=== PATIENT | female | born 1980 | race Caucasian/White ===

== ENCOUNTER 2022-12-24 15:07 | Inpatient (IN) | payer BC ==
--- OUTSIDE RECORDS SUMMARY | 2022-12-24 15:24 | XMS REPORT | Continuity of Care Document ---
:1980 Author Organization [facility] t Address [address] [place] [address] [place] [id number] Care Team Providers Name Role Phone Pcp, Patient Does Not Have A Primary Care Physician +[id number] BRIELLE HALEY Attending Clinician Unavailable Brielle Haley PA-C Attending Clinician Unknown, Attending Attending Clinician Unavailable Fatemeh Carroll MD Attending Clinician FATEMEH CARROLL Attending Clinician Unavailable Doctor Unassigned, [place] Attending Clinician Unavailable Payers Payer Name Policy Type Policy Number Effective Date Expiration Date S [facility] - [id number] 2022 00:00:00 OUT OF STATE Problems This patient has no known problems. Allergies, Adverse Reactions, Alerts Allergy Allergy Status Severity Reaction(s) Onset Inactive Treating Comm ents Source Name Type Date Date Clinician NO KNOWN Drug Active Univers ALLERGIE Class ity of [facility] Social History Social Habit Start Date Stop Date Quantity Comments Source History of Cigarette Smoker Universi ty of tobacco use [facility] Tobacco use and 2022-12-16 2022-12-16 Smokeless tobacco Un iversity of exposure 00:00:00 00:00:00 non-user [facility] Sex Assigned At [birth year] Universit y of 00:00:00 00:00:00 [facility] Smoking Status Start Date Stop Date Source Smokes tobacco daily 2022-12-16 00:00:00 Univers ity of [facility] Tobacco [facility]ations Ordered Filled Start Stop Current Ordering Indication Dosage Frequency Signature Comments Components Source Medication Medication Date Date Medication? Clinician (SIG) Name Name dexamethaso 2022- No [id number] 10mg Univers ne sod phos 12-17 64782 ity of PF 02:00: 01:07 [place] injection 00 :00 Medical 10 mg Branch dexamethaso 2022- No [id number] 10mg 10 mg, Univers ne sod phos 12-17 [id number] Intramuscu ity of PF 02:00: 01:07 lar, ONCE, [place] injection 00 :00 1 dose, On Medi josie 10 mg 12/16/22 Branch at 2100, 1 mL ciprofloxac Yes [id number] 4[drp] Place 4 Univers in-dexameth 12-16 [id number] Drops in ity of asone 00:00: right ear [place] 0.3-0.1 % 00 in the Medical otic drops morning Branch and 4 Drops in the evening. ciprofloxac 2022- No [id number] 4[drp] Place 4 Univers in-dexameth 12-16 [id number] Drops in it y of asone 00:00: 00:00 right ear [place] 0.3-0.1 % 00 :00 in the Medical otic drops morning Branch and 4 Drops in the evening. predniSONE 2022- No [id number] 40mg Univers (DELTASONE) 12-09 ity of tablet 40 02:45: 01:58 [place] mg 00 :00 Medical Branch predniSONE 2022- No [id number] 40mg 40 mg, Univers (DELTASONE) 12-09 Oral, ity o f tablet 40 02:45: 01:58 ONCE, 1 [place] mg 00 :00 dose, On Medical Tue Branch 12/08/22 at 2145, Routine methylPREDN Yes [id number] Take by [facility] ISolone 12-08 mouth ity of (MEDROL, 00:00: SEE-INSTRU Roberto as GUILHERME,) 4 mg 00 CTIONS. Medica l tablets follow Branch package directions azelastine Yes [id number] 1{spray Use 1 Univers 137 mcg 12-08 } [place] in ity of (0.1 %) 00:00: each [place] nasal spray 00 nostril in Nv dical the Branch morning and 1 [place] in the evening. Use in each nostril as directed fluticasone 2022-0 Yes [id number] 1{spray Use 1 Univers propionate 12-08 } [place] in ity of 50 00:00: each [place] mcg/actuati 00 nostril in Nv dical on nasal the Branch spray morning. cetirizine 2022-0 Yes [id number] 10mg Take 1 Univers (ZYRTEC) 10 12-08 tablet by it y of mg tablet 00:00: mouth [place] the Medical morning. Branch methylPREDN 0 Yes [id number] Take by Univers ISolone 12-08 mouth ity of (MEDROL, 00:00: SEE-INSTRU Roberto as GUILHERME,) 4 mg 00 CTIONS. Medica l tablets follow [place] package directions azelastine 0 Yes [id number] 1{spray Use 1 Univers 137 mcg 12-08 } [place] in ity of (0.1 %) 00:00: each [place] nasal spray 00 nostril in Nv dical the Branch morning and 1 [place] in the evening. Use in each nostril as directed fluticasone 2022-0 Yes [id number] 1{spray Use 1 Univers propionate 12-08 } [place] in ity of 50 00:00: each [place] mcg/actuati 00 nostril in Nv dical on nasal the Branch spray morning. cetirizine 0 Yes [id number] 10mg Take 1 Univers (ZYRTEC) 10 12-08 tablet by it y of mg tablet 00:00: mouth [place] the Medical morning. [place] Vital Signs Vital Name Observation Time Observation Value Comments Source Systolic blood 2022-12-17 00:53:00 128 mm[Hg] [facility] Diastolic blood 2022-12-17 00:53:00 78 mm[Hg] [facility] Heart rate 2022-12-17 00:53:00 89 /min [facility] Body temperature 2022-12-17 00:53:00 36.67 Meka [facility] rate 2022-12-17 00:53:00 16 /min [facility] Body weight 2022-12-17 00:53:00 78.926 kg Universi ty [facility] BMI 2022-12-17 00:53:00 24.97 kg/m2 Universi ty [facility] Oxygen saturation in 2022-12-17 00:53:00 99 /min University of Arterial blood by [facility] Pulse oximetry Branch Systolic blood 2022-12-09 01:46:00 131 mm[Hg] Univer sity of pressure [facility] Diastolic blood 2022-12-09 01:46:00 88 mm[Hg] Unive rsity of pressure [facility] Heart rate 2022-12-09 01:46:00 100 /min Universi [facility] Body temperature 2022-12-09 01:46:00 37.17 Meka [facility] Respiratory rate 2022-12-09 01:46:00 16 /min [facility] Body height 2022-12-09 01:46:00 177.8 cm Universi ty [facility] Body weight 2022-12-09 01:46:00 78.019 kg Universi ty [facility] BMI 2022-12-09 01:46:00 24.68 [facility] in 2022-12-09 01:46:00 99 /min University of Arterial blood by [facility] Pulse oximetry Branch Procedures Procedure Date / Time Performed Performing Clinician [facility] e ASSIGNMENT OF BENEFITS 2022-12-09 01:39:08 Doctor Unassigned, No [facility] Encounters Start End Encounter Admission Attending Care Care Encounter Source Date/Time Date/Time Type Type Clinicians Facility Department ID 2022-12-16 2022-12-16 Outpatient R AMBREEN [facility] [id number] Univers 19:40:00 20:17:55 BRIELLE duarte [facility] 2022-12-16 2022-12-16 Urgent Brielle Haley [facility] [id number] Univers 19:40:00 20:17:55 Care Unknown, Attending HEALTH [id number] itdayan [facility] [id number] Roberto as CHANTELLE?BLEA [phone] [address] MEDICAL OFFICE [facility] 2022-12-08 2022-12-08 Urgent Carly [facility] [id number] Univers 20:40:00 21:00:00 Care [facility] [id number] it y of [place] [id number] Roberto as CHANTELLE?BLEA [id number] [address] OFFICE [facility] 2022-12-08 2022-12-08 Outpatient R CARLY [facility] [id number] Univers 20:40:00 20:40:00 FATEMEH ity [facility] 2022-12-08 2022-12-08 Orders Doctor CYNTHIA [id number] Univers 00:00:00 00:00:00 Only Unassigned, [place] [id number] ity of [place] [facility] [id number] Roberto as [id number] [place] [id number] Branch Results This patient has no known results.
[2022-12-24] MEDS ORDERED: FENTANYL CITR 100 MCG/2 ML ONE (16:24)
[2022-12-24] MEDS ORDERED: NA CHLORIDE 0.9% 1,000 ML ONE ×2 (16:24→19:22)
[2022-12-24 17:01] LABS: Absolute Lymphocytes (CBC) 1.7 K/uL (0.7-4.9); Lymphocytes % 15.6 % (15.3-44.8); MCV 93.2 fL (80-100); MPV 8.3 fL (7.6-11.3); RBC Red Blood Cell Count 4.08 M/uL (3.86-4.86)
[2022-12-24 17:03] LABS: Specific Gravity 1.006 (1.005-1.030); Urine Bilirubin NEGATIVE (Negative); Urine Blood Negative (Negative); Urine Clarity Clear (Clear); Urine Color Colorless (Yellow); Urine Glucose NEGATIVE (Negative); Urine Protein NEGATIVE (Negative); Urine Urobilinogen Normal (Normal); Urine pH 5.5 (5.0-7.0)
[2022-12-24 17:07] LABS: Specific Gravity 1.006 (1.005-1.030)
[2022-12-24 17:15] LABS: Albumin 3.1 g/dL (3.4-5.0); Bilirubin Total 0.2 mg/dL (0.2-1.0); Potassium 3.4 mEq/L (3.5-5.1); Protein, Total 6.8 g/dL (6.4-8.2)
[2022-12-24 17:26] LABS: Protime INR 0.9
[2022-12-24] MEDS ORDERED: KCL 20 MEQ/100 mL IVPB 100 ML IV ONE (17:46)
--- NOTE | 2022-12-24 17:54 | RAD REPORT ---
EXAM DESCRIPTION: CTAbdomen Pelvis W Contrast - 12/24/2022 5:47 pm CLINICAL HISTORY: Abdominal pain. ABD PAIN COMPARISON: No comparisons TECHNIQUE: Biphasic CT imaging of the abdomen and pelvis was performed with 100 ml non-ionic IV cont rast. All CT scans are performed using dose optimization technique as appropriate and may include automated exposure control or mA/KV adjustment according to patient size. FINDINGS: The lung bases are clear. The liver demonstrates diffuse fatty infiltration. Spleen, pancreas, adrenal glands and kidneys are w ithin normal limits. No bowel obstruction, free air, free fluid or abscess. There is vkis-go-euuibzlv inflammation and thi ckening with surrounding lymphadenopathy seen distal small bowel. Right lower quadrant anastomosis is present. Appendix is absent. No evidence of significant lymphadenopathy. No suspicious bony findings. IMPRESSION: Moderately thickened and inflamed distal small bowel loops noted likely indicating infla mmatory bowel disease or infection. No bowel obstruction, free fluid or abscess.
--- NOTE | 2022-12-24 19:10 | EDPHYS ---
Physician Documentation [facility] Name: Pebbles Negrete Age: 42 yrs Sex: Female : 1980 Arrival Date: 12/24/2022 Time: 15:07 Bed 17 Private MD: ED Physician Prince Ramires HPI: 12/24 17:14 This 42 yrs old Female presents to ER via Ambulatory with complaints of Abdominal Pain. snw 17:14 The patient presents with abdominal pain that is diffuse. Onset: The symptoms/episode snw began/occurred acutely. The symptoms radiate to rectum. Associated signs and symptoms: Pertinent positives: anorexia, nausea. The symptoms are described as constant. Severity of pain: At its worst the pain was moderate to perianal area, severe. The patient has experienced a previous episode, approximately 6 years ago, and the symptoms today are exactly the same, in [place] . The patient has not recently seen a physician. 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 ROS: 17:13 Constitutional: Negative for fever, chills, and weight loss, Eyes: Negative for injury, snw pain, redness, and discharge, ENT: Negative for injury, pain, and discharge, Neck: Negative for injury, pain, and swelling, Cardiovascular: Negative for chest pain, palpitations, and edema, Respiratory: Negative for shortness of breath, cough, wheezing, and pleuritic chest pain, Back: Negative for injury and pain, : Negative for injury, bleeding, discharge, and swelling, MS/Extremity: Negative for injury and deformity, Skin: Negative for injury, rash, and discoloration, Neuro: Negative for headache, weakness, numbness, tingling, and seizure, Psych: Negative for depression, anxiety, suicide ideation, homicidal ideation, and hallucinations. 17:13 Abdomen/GI: Positive for abdominal pain, nausea, abdominal cramps, alison rectal pain, mass. Exam: 17:03 Head/Face: Normocephalic, atraumatic. Eyes: Pupils equal round and reactive to light, snw extra-ocular motions intact. Lids and lashes normal. Conjunctiva and sclera are non-icteric and not injected. Cornea within normal limits. Periorbital areas with no swelling, redness, or edema. 17:03 Neck: Trachea midline, no thyromegaly or masses palpated, and no cervical lymphadenopathy. Supple, full range of motion without nuchal rigidity, or vertebral point tenderness. No Meningismus. Chest/axilla: Normal chest wall appearance and motion. Nontender with no deformity. No lesions are appreciated. 17:03 Respiratory: Lungs have equal breath sounds bilaterally, clear to auscultation and percussion. No rales, rhonchi or wheezes noted. No increased work of breathing, no retractions or nasal flaring. Back: No spinal tenderness. No costovertebral tenderness. Full range of motion. Skin: Warm, dry with normal turgor. Normal color with no rashes, no lesions, and no evidence of cellulitis. MS/ Extremity: Pulses equal, no cyanosis. Neurovascular intact. Full, normal range of motion. Neuro: Awake and alert, GCS 15, oriented to person, place, time, and situation. Cranial nerves II-XII grossly intact. Motor strength 5/5 in all extremities. Sensory grossly intact. Cerebellar exam normal. Normal gait. Psych: Awake, alert, with orientation to person, place and time. Behavior, mood, and affect are within normal limits. 17:03 Constitutional: The patient appears alert, awake, uncomfortable. 17:03 ENT: Nose: Nasal mucosa: edematous, Mouth: is normal, Voice: is normal. 17:03 Cardiovascular: Rate: tachycardic, Heart sounds: normal. 17:03 Abdomen/GI: Inspection: abdomen appears normal, Bowel sounds: normal, Palpation: moderate abdominal tenderness, in the right lower quadrant and left lower quadrant, Rectal exam: mass, that is moderate-sized, with tenderness, tender abscess deep to right of anus. Vital Signs: 15:12 BP 147 / 77; Pulse 112; Resp 16; Temp 97.5; Pulse Ox 100% on R/A; Weight 78.02 kg; iw Height 5 ft. 10 in. ; Pain 8/10; 16:45 BP 117 / 80; Pulse 89; Resp 16; Pulse Ox 100% on R/A; db 17:30 BP 112 / 61; Pulse 77; Resp 16; Pulse Ox 98% on R/A; db 18:36 Pulse 74; Resp 17; Pulse Ox 99% on R/A; ap3 19:00 BP 122 / 85; Pulse 81; Resp 16; Pulse Ox 100% on R/A; jb4 20:21 BP 111 / 55; Pulse 81; Resp 16; Pulse Ox 100% on R/A; jb4 15:12 Body Mass Index 24.68 (78.02 kg, 177.8 cm) iw 15:12 Pain Scale: Adult iw MDM: 15:36 Patient medically screened. snw 17:08 Differential diagnosis: bowel obstruction, diverticulitis, perianal abscess. Data snw reviewed: vital signs, nurses notes, lab test result(s), radiologic studies. I considered the following discharge prescriptions or medication management in the emergency department Medications were administered in the Emergency Department. See MAR. 19:07 ED course: reached out for more clarification of pelvis CT result as mass at right of snw anus is tender and pt has a history of a fistula on the left. Discussed admission with Patricia White to admit for further care. 19:11 Management of patient was discussed with the following: Hospitalist: awaiting sn clarification of pelvic CT findings, CT reaching out to Dr. Hall again. Discussed admit with Patricia White for admission. 12/24 15:38 Order name: Blood Culture Adult (2) [facility] 12/24 15:38 Order name: CBC with Diff; Complete Time: 17:11 [facility] 12/24 15:38 Order name: CMP; Complete Time: 17:16 [facility] 12/24 15:38 Order name: Lactate w/ 2H reflex if indic.; Complete Time: 17:17 [facility] 12/24 15:38 Order name: Protime (+inr); Complete Time: 17:27 [facility] 12/24 15:38 Order name: Ptt, Activated; Complete Time: 17:27 [facility] 12/24 15:38 Order name: Urinalysis w/ reflexes; Complete Time: 17:09 [facility] 12/24 15:38 Order name: PREGU; Complete Time: 17:09 [facility] 12/24 15:38 Order name: CT Abd/Pelvis - IV Contrast Only; Complete Time: 19:17 [facility] 12/24 15:38 Order name: EKG; Complete Time: 15:39 [facility] 12/24 15:38 Order name: Cardiac monitoring; Complete Time: 16:46 snw 12/24 15:38 Order name: EKG - Nurse/Tech; Complete Time: 16:46 w 12/24 15:38 Order name: IV Saline Lock - Large Bore; Complete Time: 16:46 snw 12/24 15:38 Order name: Labs collected and sent; Complete Time: 16:46 snw 12/24 15:38 Order name: O2 Per Protocol; Complete Time: 16:46 12/24 15:38 Order name: O2 Sat Monitoring; Complete Time: 16:46 w 12/24 15:38 Order name: Vital Signs; Complete Time: 16:46 snw Administered Medications: 20:21 Discontinued: Ciprofloxacin IVPB 400 mg 200 ml IVPB once over 60 mins jb4 16:35 Drug: NS 0.9% IV 1000 ml Route: IV; Rate: 1 bolus; Site: right antecubital; db 16:35 Drug: fentaNYL (PF) IVP 25 mcg Route: IVP; Site: right antecubital; db 17:40 Drug: Potassium Chloride IV 20 mEq Route: IV; Rate: calculated rate; Site: right ap3 antecubital; 19:18 Drug: NS 0.9% IV 1000 ml Route: IV; Rate: 125 ml/hr; Site: right antecubital; jb4 19:30 Drug: metroNIDAZOLE IVPB 250 mg Volume: 50 ml; Route: IVPB; Rate: 100 ml/hr; Infused jb4 Over: 30 mins; Site: left antecubital; 20:00 Follow up: Response: No adverse reaction; IV Status: Completed infusion; IV Intake: [id number] 20:03 Drug: Ciprofloxacin IVPB 400 mg Volume: 200 ml; Route: IVPB; Infused Over: 60 mins; jb4 Site: left antecubital; 20:21 Follow up: Response: Adverse reaction, Physician notified; IV Status: Order to jb4 discontinue infusion 20:27 Drug: MethylPrednisoLONE IVP 125 mg Route: IVP; Site: left antecubital; jb4 20:27 Drug: diphenhydrAMINE IVP 50 mg Route: IVP; Site: left antecubital; jb4 20:27 Drug: Famotidine IVP 20 mg Route: IVP; Site: left antecubital; jb4 Disposition: 07/14 10:01 Co-signature as Attending Physician, Prince Ramires MD I reviewed the patient's care rt provided by the Advanced Practice Provider and agree with the diagnosis and treatment plan. Disposition Summary: 12/24/22 19:09 Hospitalization Ordered Hospitalization Status: Inpatient Admission snw Provider: Hillary Tapia Location: Telemetry/MedSurg (Inpatient) snw Condition: Stable snw Problem: new snw Symptoms: are unchanged snw Bed/Room Type: Standard snw Room Assignment: 406(12/24/22 19:35) mw Diagnosis - Crohn's disease of both small and large intestine - alison anal abscess (right) snw - Alison rectal abscess snw Forms: - Medication Reconciliation Form snw - SBAR form snw Signatures: Dispatcher [employer] EDMS Lulu Elizabeth RN RN mw Waters, Shelly, VECTOR CONTROL ASSISTANT-C VECTOR CONTROL ASSISTANT-Csnw Kaleigh Hicks RN RN iw Helder Bower RN RN jb4 Jeanne Reynoso RN RN ap3 Ramona Zhou RN RN db Prince Ramires MD MD rt Corrections: (The following items were deleted from the chart) 12/24 19:11 17:03 Abdomen/GI: Inspection: abdomen appears normal, Bowel sounds: normal, Palpation: snw moderate abdominal tenderness, in the right lower quadrant and left lower quadrant, Rectal exam: mass, that is moderate-sized, with tenderness, tender abscess deep to left of anus, snw 19:35 19:09 snw mw
--- NOTE | 2022-12-24 19:10 | ER ---
Nurse's Notes [facility] Name: Pebbles Negrete Age: 42 yrs Sex: Female : 1980 Arrival Date: 12/24/2022 Time: 15:07 Bed 17 Private MD: Diagnosis: Crohn's disease of both small and large intestine-alison anal abscess (right);Alison rectal abscess Presentation: 12/24 15:12 Chief complaint: Patient states: thinks i have a partial bowel obstruction, has had iw previous bowel resection, hx of Crohns disease, feels stabbing pain in lower and mid abdomen , she also has a hx of internal hemorrhoids, while in the shower today she found a lump next to my vagina, last time that happened 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 Coronavirus screen: At this time, the client does not indicate any symptoms associated with coronavirus-19. Ebola Screen: Patient negative for fever greater than or equal to 101.5 degrees Fahrenheit, and additional compatible Ebola Virus Disease symptoms Patient denies exposure to infectious person. Patient denies travel to an Ebola-affected area in the 21 days before illness onset. No symptoms or risks identified at this time. Initial Sepsis Screen: Does the patient meet any 2 criteria? No. Patient's initial sepsis screen is negative. Does the patient have a suspected source of infection? No. Patient's initial sepsis screen is negative. Risk Assessment: Do you want to hurt yourself or someone else? Patient reports no desire to harm self or others. 15:12 Method Of Arrival: Ambulatory iw 15:12 Acuity: CHEPE 3 iw 18:35 Onset of symptoms is unknown. ap3 Historical: - Allergies: 15:15 Morphine; iw 20:30 Ciprofloxacin; jb4 - PMHx: 15:15 Crohn's disease; iw - PSHx: 15:15 anal fistula; section; iw - Social history:: Smoking status: . Screenin:35 [facility] ED Fall Risk Assessment (Adult) History of falling in the last 3 months, db including since admission No falls in past 3 months (0 pts) Confusion or Disorientation No (0 pts) Intoxicated or Sedated No (0 pts) Impaired Gait No (0 pts) Mobility Assist Device Used No (0 pt) Altered Elimination No (0 pt) Score/Fall Risk Level 0 - 2 = Low Risk Oriented to surroundings, Maintained a safe environment. Abuse screen: Denies threats or abuse. Denies injuries from another. Nutritional screening: No deficits noted. Tuberculosis screening: No symptoms or risk factors identified. Assessment: 16:35 Reassessment: Patient appears in no apparent distress at this time. Patient and/or db family updated on plan of care and expected duration. Pain level reassessed. Patient is alert, oriented x 3, equal unlabored respirations, skin warm/dry/pink. PATIENT WITH "BUMP" IN INNER GROIN. STATES IS CONCERNED FOR OSEI. General: Appears in no apparent distress. comfortable, Behavior is calm, cooperative. Pain: Complains of pain in abdomen. Neuro: Level of Consciousness is awake, alert, obeys commands, Oriented to person, place, time, situation. Cardiovascular: No deficits noted. Respiratory: Airway is patent. GI: Bowel sounds present X 4 quads. Abd is soft. 17:00 Reassessment: PATIENT REFUSED OSEI. NOTIFIED PROVIDER KIZZY FORBES. db 17:00 Reassessment: Patient appears in no apparent distress at this time. Patient and/or db family updated on plan of care and expected duration. Pain level reassessed. Patient is alert, oriented x 3, equal unlabored respirations, skin warm/dry/pink. Patient states feeling better. Patient states symptoms have improved. 19:00 Reassessment: Patient appears in no apparent distress at this time. Patient and/or jb4 family updated on plan of care and expected duration. Pain level reassessed. Patient is alert, oriented x 3, equal unlabored respirations, skin warm/dry/pink. 20:05 Reassessment: Patient appears in no apparent distress at this time. Patient and/or jb4 family updated on plan of care and expected duration. Pain level reassessed. Patient is alert, oriented x 3, equal unlabored respirations, skin warm/dry/pink. 21:17 Reassessment: Patient appears in no apparent distress at this time. Patient and/or jb4 family updated on plan of care and expected duration. Pain level reassessed. Patient is alert, oriented x 3, equal unlabored respirations, skin warm/dry/pink. Vital Signs: 15:12 BP 147 / 77; Pulse 112; Resp 16; Temp 97.5; Pulse Ox 100% on R/A; Weight 78.02 kg; iw Height 5 ft. 10 in. ; Pain 8/10; 16:45 BP 117 / 80; Pulse 89; Resp 16; Pulse Ox 100% on R/A; db 17:30 BP 112 / 61; Pulse 77; Resp 16; Pulse Ox 98% on R/A; db 18:36 Pulse 74; Resp 17; Pulse Ox 99% on R/A; ap3 19:00 BP 122 / 85; Pulse 81; Resp 16; Pulse Ox 100% on R/A; jb4 20:21 BP 111 / 55; Pulse 81; Resp 16; Pulse Ox 100% on R/A; jb4 15:12 Body Mass Index 24.68 (78.02 kg, 177.8 cm) iw 15:12 Pain Scale: Adult iw ED Course: 15:08 Patient arrived in ED. am2 15:15 Triage completed. iw 15:15 Arm band placed on. iw 15:17 Ramona Zhou, RN is Primary Nurse. db 15:34 Elidia Forbes FNP-C is PHCP. snw 15:34 Prince Ramires MD is Attending Physician. snw 16:40 First set of blood cultures drawn Second set of blood cultures drawn by ia. sm8 16:53 Inserted saline lock: 20 gauge in right antecubital area, using aseptic technique. sm8 16:53 Inserted saline lock: 20 gauge in left antecubital area, using aseptic technique. Blood sm8 collected. Inserted saline lock: Blood collected. 17:37 Patient has correct armband on for positive identification. Call light in reach. Side db rails up X 1. 17:40 Report given to CHIRAG WELDON. db 17:48 CT Abd/Pelvis - IV Contrast Only In Process Unspecified. EDMS 17:56 Jeanne Reynoso, CHIRAG is Primary Nurse. ap3 18:35 Provided Education on: medications prior to administration. ap3 19:08 Hillary Tapia MD is Hospitalizing Provider. snw 21:17 No provider procedures requiring assistance completed. Patient admitted, IV remains in jb4 place. Administered Medications: 20:21 Discontinued: Ciprofloxacin IVPB 400 mg 200 ml IVPB once over 60 mins jb4 16:35 Drug: NS 0.9% IV 1000 ml Route: IV; Rate: 1 bolus; Site: right antecubital; db 16:35 Drug: fentaNYL (PF) IVP 25 mcg Route: IVP; Site: right antecubital; db 17:40 Drug: Potassium Chloride IV 20 mEq Route: IV; Rate: calculated rate; Site: right ap3 antecubital; 19:18 Drug: NS 0.9% IV 1000 ml Route: IV; Rate: 125 ml/hr; Site: right antecubital; jb4 19:30 Drug: metroNIDAZOLE IVPB 250 mg Volume: 50 ml; Route: IVPB; Rate: 100 ml/hr; Infused jb4 Over: 30 mins; Site: left antecubital; 20:00 Follow up: Response: No adverse reaction; IV Status: Completed infusion; IV Intake: [id number] 20:03 Drug: Ciprofloxacin IVPB 400 mg Volume: 200 ml; Route: IVPB; Infused Over: 60 mins; jb4 Site: left antecubital; 20:21 Follow up: Response: Adverse reaction, Physician notified; IV Status: Order to jb4 discontinue infusion 20:27 Drug: MethylPrednisoLONE IVP 125 mg Route: IVP; Site: left antecubital; jb4 20:27 Drug: diphenhydrAMINE IVP 50 mg Route: IVP; Site: left antecubital; jb4 20:27 Drug: Famotidine IVP 20 mg Route: IVP; Site: left antecubital; jb4 Medication: 18:36 VIS not applicable for this client. ap3 Intake: 20:00 IV: 50ml; Total: 50ml. jb4 Outcome: 19:09 Decision to Hospitalize by Provider. snw 21:17 Admitted to Tele accompanied by nurse, via wheelchair, room 406, with chart. jb4 21:17 Condition: stable 21:17 Discharge instructions given to patient, Instructed on the need for admit, Demonstrated understanding of instructions. 21:18 Patient left the ED. jb4 Signatures: Dispatcher [employer] EDMS Elidia Forbes FNP-C SKY CAP-Csnw Kaleigh Hicks RN RN iw Bryson, James, RN RN jb4 Jeanne Mahoney Amanda, RN RN ap3 Ramona Zhou RN RN db Mills, Scarlett 8 Corrections: (The following items were deleted from the chart) 15:16 15:12 BP 147 / 77; Pulse 112bpm; Resp 16bpm; Temp 97.5F; iw iw
--- NOTE | 2022-12-24 19:23 | P.HP ---
Certification for Inpatient Patient admitted to: Observation With expected LOS: <2 Midnights Patient will require the following post-hospital care: None Practitioner: I am a practitioner with admitting privileges, knowledge of patient current condition, hospital course, and medical plan of care. Services: Services provided to patient in accordance with Admission requirements found in Title 42 Section 412.3 of the Code of Federal Regulations Patient History Date of Service: 12/25/22 Reason for admission: Rectal abscess History of Present Illness: 42-year-old female with a history of Crohn's disease presents to emergency room for rectal pain. Pain 7 out of 10. She reports rectal pressure started yesterday, worse today. 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 She reports not seen GI since 2013, no recent colonoscopy or EGD. She reports greater than 10 bowel movements per day. She reports previously taking Imuran however has not taken since 2013. She denies fever, rectal bleeding, nausea vomiting, she reports mild abdominal tenderness that is chronic she reports abdominal pain is worse with eating vegetables. Laboratory evaluation Leukocytosis 11.0, mild left shift 77.8 CMP mild hyponatremia UA pending. CT of the abdomen pelvis IMPRESSION: Moderately thickened and inflamed distal small bowel loops noted likely indicating inflammatory bowel disease or infection-radiologist called to evaluate rectal abscess she has a 11 mm perirectal abscess after speaking with the radiologist. Allergies ciprofloxacin Allergy (Verified 12/24/22 20:26) Hives/Rash morphine Allergy (Verified 12/24/22 20:26) Hives/Rash Home Medications: Azelastine [Astelin 137MCG/Metered [place]*] 1 spray ASAD BID 12/24/22 Cetirizine HCl [Zyrtec] 10 mg PO DAILY 12/24/22 Fluticasone [Flonase 50MCG Nasal [place]*] 1 spray ASAD DAILY 12/24/22 Ibuprofen [Motrin] 600 mg PO Q6HWA 12/24/22 Omeprazole [Prilosec] 40 mg PO DAILY 12/24/22 Review of Systems 10-point ROS is otherwise unremarkable Physical Examination - Physical Exam General: Alert, In no apparent distress, Oriented x3 HEENT: Atraumatic, Normocephalic, PERRLA Neck: Supple, 2+ carotid pulse no bruit, JVD not distended Respiratory: Clear to auscultation bilaterally, Normal air movement Cardiovascular: No edema, Normal pulses, Regular rate/rhythm Capillary refill: <2 Seconds Gastrointestinal: Normal bowel sounds (Perirectal abscess tender to palpation) Musculoskeletal: No clubbing, No swelling Integumentary: No rashes, No breakdown Neurological: Normal gait, Normal speech, Normal strength at 5/5 x4 extr - Studies Laboratory Data (last 24 hrs) 12/24/22 16:36: PT 9.9, INR 0.90, APTT 30.6 12/24/22 16:36: Sodium 139, Potassium 3.4 L, BUN 5 L, Creatinine 0.66, Glucose 96, Total Bilirubin 0.2, AST 11 L, ALT 20, Alkaline Phosphatase 60 12/24/22 16:36: WBC 11.00 H, Hgb 12.4, Hct 38.0, Plt Count 280 Assessment and Plan - Plan Assessment plan Crohn's disease uncontrolled Perirectal abscess Leukocytosis 11.0, mild left shift 77.8 CMP mild hyponatremia UA pending. Assessment plan Crohn's disease uncontrolled GI consult, n.p.o. after midnight Perirectal abscess Surgical consult, as needed analgesics, IV Zosyn, as needed analgesics Leukocytosis 11.0, mild left shift 77.8, trend WBC CT of the abdomen pelvis IMPRESSION: Moderately thickened and inflamed distal small bowel loops noted likely indicating inflammatory bowel disease or infection-radiologist called to evaluate rectal abscess she has a 11 mm perirectal abscess after speaking with the radiologist. Hyponatremia mild hyponatremia Diet n.p.o. after midnight Full code DVT Lovenox Discharge Plan: Home Plan to discharge in: 48 Hours - Advance Directives Does patient have a Living Will: No Does patient have a Durable POA for Healthcare: No - Code Status/Comfort Care Code Status Assessed: No Code Status: Full Code Critical Care: No Time Spent Managing Pts Care (In Minutes): 55
[2022-12-24] MEDS ORDERED: METRONIDAZOLE 500mg IVPB 500 MG/100 ML BAG IV ONE (19:30)
[2022-12-24] MEDS ORDERED: CIPROFLOXACIN 400mg IV 400 MG/200 ML BAG IV ONE (19:30)
[2022-12-24] MEDS ORDERED: METHYLPREDNISOLONE 125 MG INJ ONE (20:23)
[2022-12-24] MEDS ORDERED: DIPHENHYDRAMINE 50 MG/ML VIAL ONE (20:24)
[2022-12-24] MEDS ORDERED: FAMOTIDINE 20 MG/2 ML VIAL IV ONE (20:24)
[2022-12-24] MEDS: NA CHLORIDE 0.9% 1,000 ML IV SCH (21:56)
[2022-12-24] MEDS: ZOLPIDEM TARTRATE 10 MG TABLET PO PRN (22:01)
[2022-12-24] MEDS: HYDROMORPHONE HCL 0.5 MG/0.5 ML INJ IV PRN (22:03)
[2022-12-24 22:39] VITALS: BMI 24.7
[2022-12-24 22:54] VITALS: O2SAT 100
[2022-12-25] MEDS: PIPER TAZO 3.375 GM in NA CHLORIDE 0.9% 100 ML IV SCH ×3 (01:24→16:31)
[2022-12-25] MEDS: HYDROMORPHONE HCL 0.5 MG/0.5 ML INJ IV PRN ×5 (02:22→18:24)
[2022-12-25] MEDS: NA CHLORIDE 0.9% 1,000 ML IV SCH (08:03)
--- NOTE | 2022-12-25 12:50 | EKG ---
Test Date: 2022-12-24 Test Time: 16:28:43 Account Manager B2B: SAMREEN MEASUREMENT RESULTS: Intervals: Rate: 82 IA: 146 QRSD: 74 QT: 386 QTc: 450 [place]ts: P: 45 IA: 146 QRS: 57 T: 43 INTERPRETIVE STATEMENTS: Normal sinus rhythm Normal ECG No previous ECG available for comparison Electronically Signed On 12-25-22 12:49:40 CDT by Salvatore Coyle
--- NOTE | 2022-12-25 16:10 | P.CNS ---
Date of Consult: 12/25/22 PC: I was asked to see this patient in regards to a possible perirectal abscess. HPC: Patient apparently has been complaining of perirectal pain for about the last 2 weeks. Intensified to the point that she came to the ER for evaluation and treatment. Her initial exam she says she had a golf ball sized pocket in the area between the anus and the vagina on the right side. However today she says it feels much better and has gotten a lot smaller. PSHx: Patient was diagnosed with Crohn's disease approximately 15 years ago. Has had episodes of perirectal abscesses in the past. Does not really have a GI to follow-up with and has not been on medication. PMHx: Crohn's disease Social Hx: Allergic to Cipro, morphine Sys R: No cough, wheeze, shortness of breath. No chest pain or palpitations. Has not been running any temperatures or fevers at home. Normal urination. Has had her usual frequent bowel movements, but no blood in the stools. [She does complain of internal hemorrhoids] O/E: Awake alert vital signs are stable HEENT: Negative Chest: Air entry equal bilaterally Abd: Abdomen is soft, on inspection of the perineal area, has old skin tag at the anus no evidence of any external hemorrhoids no evidence of any irritation on gentle palpation of the area between the anus and the posterior portion of the vagina on the left side there is a small pea-sized shaped area that is palpable and mildly tender. No openings are seen on the outside no redness or erythema surrounding it. [place]: Intact Data: CT scan shows small well walled fluid collection. Impression: Patient has a small 1 cm possible fluid collection. Plan: Patient has been on steroids, and treated with antibiotics at the moment. She is also been seen by GI. I do not feel that it would be bills to try and drain this small abscess and it most likely will resolve with just antibiotic treatment. She is very reluctant to have any type of surgery at all anyway. I believe medical management at the moment will be the best for her. We also discussed possible follow-up with a colorectal surgeon at some point both for her Crohn's disease so she can find out what treatments are available for her as well as possible treatment of her internal hemorrhoids. She is content with this discussion.
--- NOTE | 2022-12-25 16:36 | P.PN ---
Subjective Date of Service: 12/25/22 Chief Complaint: Rectal abscess Patient states her rectal pain has significantly improved since starting antibiotics. He has had no fever. She reports chronic loose stools. Physical Examination - Vital Signs Temperature: 97.6 F Blood Pressure: 97/55 Pulse: 79 Respirations: 12 Pulse Ox (%): 98 - Studies Laboratory Data (last 24 hrs) 12/24/22 16:36: PT 9.9, INR 0.90, APTT 30.6 12/24/22 16:36: Sodium 139, Potassium 3.4 L, BUN 5 L, Creatinine 0.66, Glucose 96, Total Bilirubin 0.2, AST 11 L, ALT 20, Alkaline Phosphatase 60 12/24/22 16:36: WBC 11.00 H, Hgb 12.4, Hct 38.0, Plt Count 280 Assessment And Plan - Plan Physical Exam General: Alert, In no apparent distress, Oriented x3 Neck: Supple, JVD not distended Respiratory: Clear to auscultation bilaterally, Normal air movement Cardiovascular: No edema, Normal pulses, Regular rate/rhythm Gastrointestinal: Normal bowel sounds, no tenderness. Integumentary: No rashes, No breakdown Neurological: No focal motor deficit. Diagnosis Crohn's disease exacerbation Perirectal abscess Plan: Patient seen and evaluated by GI-Dr. Menjivar and general surgery-Dr. Tsai. Both recommend nonsurgical management. Continue IV antibiotics. No steroids given the presence of perirectal abscess. Start clear liquid diet. Monitor and correct electrolytes. Possible discharge in a.m. Full code DVT Lovenox
[2022-12-25] MEDS: HYDROCODONE/APAP 5/325 MG TAB PO PRN (21:23)
[2022-12-25] MEDS: ZOLPIDEM TARTRATE 10 MG TABLET PO PRN (21:26)
[2022-12-26] MEDS: NA CHLORIDE 0.9% 1,000 ML IV SCH (00:33)
[2022-12-26] MEDS: PIPER TAZO 3.375 GM in NA CHLORIDE 0.9% 100 ML IV SCH ×2 (00:34→07:51)
[2022-12-26] MEDS: HYDROCODONE/APAP 5/325 MG TAB PO PRN ×2 (02:53→07:50)
[2022-12-26 03:46] LABS: Absolute Lymphocytes (CBC) 2.9 K/uL (0.7-4.9); Hematocrit 31.9 % (36.0-45.0); Lymphocytes % 26.1 % (15.3-44.8); MCV 93.8 fL (80-100); MPV 8.1 fL (7.6-11.3)
[2022-12-26 04:02] LABS: Potassium 3.9 mEq/L (3.5-5.1)
[2022-12-26 08:28] VITALS: BP 110/59; TEMP 97.7
--- NOTE | 2022-12-26 09:04 | P.DS ---
Admission Date: 12/24/22 Discharge Date: 12/26/22 Disposition: IN HOME/HOME HEALTH CARE Reason for Admission: Rectal abscess Brief History of Present Illness: 42-year-old female with a history of Crohn's disease presents to emergency room for rectal pain. Pain 7 out of 10. She reported rectal pressure. 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 She reports not seen GI since 2013, no recent colonoscopy or EGD. She reports greater than 10 loose bowel movements per day. She reports previously taking Imuran however has not taken anything since 2013. She denied fever, rectal bleeding, nausea vomiting, she reported mild abdominal tenderness that is chronic. Laboratory evaluation Leukocytosis 11.0, mild left shift 77.8 CMP mild hyponatremia UA pending. CT of the abdomen pelvis IMPRESSION: Moderately thickened and inflamed distal s mall bowel loops noted likely indicating inflammatory bowel disease and a 11 mm perirectal abscess. Patient was started on antibiotics and admitted for further management. Hospital Course: Diagnosis Crohn's disease exacerbation Perirectal abscess Hospital course Patient was admitted to the medical floor and started on IV Zosyn She was seen and evaluated by GI-Dr. Menjivar and general surgery-Dr. Tsai. Both recommend nonsurgical management. Patient's symptoms improved, her pain improved. Patient had bowel movement and tolerated diet. No steroids given the presence of perirectal abscess. Patient is discharged with oral antibiotics and to follow-up with Dr. Garcia for further evaluation and management for Crohn's disease. Vital Signs/Physical Exam: Temp Pulse Resp BP Pulse Ox 97.7 F 87 18 110/59 L 99 12/26/22 08:00 12/26/22 08:00 12/26/22 08:00 12/26/22 08:00 12/26/22 08:00 General: Alert, In no apparent distress, Oriented x3 HEENT: Mucous membr. moist/pink, Other (Patient requested for ear examination. Patient ears were examined with otoscope and noted clean, normal-looking, drowsy tympanic membrane with no erythema or air-fluid level in both the ears.), Sclerae nonicteric Neck: Supple, JVD not distended Respiratory: Clear to auscultation bilaterally, Normal air movement, Crackles/rales Cardiovascular: No edema, Regular rate/rhythm, Normal S1 S2 Gastrointestinal: Normal bowel sounds, Soft and benign, Non-distended, No tenderness Musculoskeletal: No swelling Integumentary: No rashes, No cyanosis Neurological: Normal strength at 5/5 x4 extr, Cranial nerves 3-12 intact Laboratory Data at Discharge: WBC 11.10 thou/uL (4.3-10.9) H 12/26/22 03:25 Hgb 10.7 g/dL (12.0-15.0) L 12/26/22 03:25 Hct 31.9 % (36.0-45.0) L 12/26/22 03:25 Plt Count 248 thou/uL (152-406) 12/26/22 03:25 PT 9.9 SECONDS (9.5-12.5) 12/24/22 16:36 INR 0.90 12/24/22 16:36 APTT 30.6 SECONDS (24.3-36.9) 12/24/22 16:36 Sodium 140 mEq/L (136-145) 12/26/22 03:25 Potassium 3.9 mEq/L (3.5-5.1) 12/26/22 03:25 BUN 9 mg/dL (7-18) 12/26/22 03:25 Creatinine 0.72 mg/dL (0.55-1.02) 12/26/22 03:25 Glucose 98 mg/dL (74-106) 12/26/22 03:25 Total Bilirubin 0.2 mg/dL (0.2-1.0) 12/24/22 16:36 AST 11 U/L (15-37) L 12/24/22 16:36 ALT 20 U/L (13-56) 12/24/22 16:36 Alkaline Phosphatase 60 U/L (45-117) 12/24/22 16:36 Home Medications: Azelastine [Astelin 137MCG/Metered [place]*] 1 spray ASAD BID 12/24/22 Cetirizine HCl [Zyrtec] 10 mg PO DAILY 12/24/22 Fluticasone [Flonase 50MCG Nasal [place]*] 1 spray ASAD DAILY 12/24/22 Omeprazole [Prilosec] 40 mg PO DAILY 12/24/22 Amox/Clavulanate [Augmentin 875-125 Tab] 1 each PO BID #20 tab 07/15/23 Hydrocodone 7.5/APAP 325 [[place] 7.5/325 mg*] 1 tab PO Q6H PRN #15 tab 12/26/22 metroNIDAZOLE [Metronidazole] 500 mg PO TID #30 tab 12/26/22 New Medications: Amox/Clavulanate [Augmentin 875-125 Tab] 1 each PO BID #20 tab metroNIDAZOLE [Metronidazole] 500 mg PO TID #30 tab Hydrocodone 7.5/APAP 325 [[place] 7.5/325 mg*] 1 tab PO Q6H PRN #15 tab PRN Reason: Pain Diet: Regular Activity: Ad cholo Followup: Niranjan Jim MD [ACTIVE - CAN ADMIT] - (Within 2 weeks) Time spent managing pt's care (in minutes): 32
== END 2022-12-26 09:45 | disposition home or self-care (01) | DRG 386 ==
LOC: ER 15:07 → ERHOLD 19:23 → 4TH 21:52
PROVIDERS: ADMIT Internal Medicine; ATTEND Internal Medicine
DX: K50.90 Crohn's disease, unspecified, without complications (principal); E87.1 Hypo-osmolality and hyponatremia; K61.1 Rectal abscess; Z88.5 Allergy status to narcotic agent; Z88.1 Allergy status to other antibiotic agents; Z79.899 Other long term (current) drug therapy
CPT/HCPCS: 36415; 74177; 80048; 80053; 81003; 81025; 83605; 85025; 85610; 85730; 87040; 93005; 99285; J0744; J1170; J1200; J2543; J2930; J3010; J3480; J7030; Q9967